=== PATIENT | female | born 1935 | race Caucasian/White ===

== ENCOUNTER 2018-09-03 12:49 | Emergency (ER) | payer MEDICARE, OTHER ==
--- NOTE | 2018-09-03 12:56 | EDM.PDOC ---
"ED HPI GENERAL MEDICAL PROBLEM - General Chief Complaint: Abdominal Pain Stated Complaint: ADOMINAL PAIN Time Seen by Provider: 09/03/18 12:55 Source of Information: Reports: Patient, Family (), Old Records, RN, RN Notes Reviewed History Limitations: Reports: No Limitations - History of Present Illness INITIAL COMMENTS - FREE TEXT/NARRATIVE: Pt presents to ER from home by POV with c/o the onset of epigastric/RUQ pain on Saturday, Aug.31 and has been persistent since that time. She reports the pain is associated with nausea and loss of appetite. The pain radiates to the Rt upper back. Today the pain became severe. She denies vomiting, fever, chills, abdominal distention, or urinary symptoms. She reports no change in her chronic constipation. The pain is worse if she tries to eat or moves/bends at the abdomen. Nothing has alleviated her pain. Onset Date: 08/31/18 Duration: Constant, Getting Worse Location: Reports: Abdomen Quality: Reports: Ache Severity: Moderate Improves with: Reports: None Worsens with: Reports: Eating, Movement Associated Symptoms: Reports: No Other Symptoms - Related Data Allergies Allergy/AdvReac Type Severity Reaction Status Date / Time No Known Allergies Allergy Verified 03/12/16 11:49 Home Meds: Home Meds Aspirin/Calcium Carbonate/Mag [Aspirin Buffered 325 mg Tab] 1 tab PO DAILY 03/12 [History] Metoprolol Tartrate 50 mg PO BID 03/12/16 [History] Levothyroxine [Synthroid] 50 mcg PO DAILY 09/03/18 [History] Lisinopril 40 mg PO DAILY 09/03/18 [History] hydroCHLOROthiazide [Hydrochlorothiazide] 25 mg PO DAILY 09/03/18 [History] Past Medical History HEENT History: Reports: Cataract, Impaired Vision, Macular Degeneration Cardiovascular History: Reports: Heart Murmur, High Cholesterol, Hypertension Respiratory History: Reports: COPD Genitourinary History: Reports: Acute Renal Failure Endocrine/Metabolic History: Reports: Other (See Below) Other Endocrine/Metabolic History: hashimotos thyroiditis - Infectious Disease History Infectious Disease History: Reports: Measles, Mumps Social & Family History - Family History Oncologic: Reports: Prostate, Other (See Below) Other Oncologic Family History: unsure of - Tobacco Use Smoking Status *Q: Current Every Day Smoker Tobacco Use Within Last Twelve Months: Cigarettes Years of Tobacco use: 65 Packs/Tins Daily: 0.5 Smoking Cessation Information Provided To Patient: Patient Refused Second Hand Smoke Education Provided: Yes - Caffeine Use Caffeine Use: Reports: Coffee - Alcohol Use Alcohol Use History: Yes Alcohol Use Frequency: Socially - Recreational Drug Use Recreational Drug Use: No - Living Situation & Occupation Living situation: Reports: , with Spouse Occupation: Retired ED ROS GENERAL - Review of Systems Review Of Systems: ROS reveals no pertinent complaints other than HPI. ED EXAM, GI/ABD - Physical Exam Exam: See Below Exam Limited By: No Limitations General Appearance: Alert, No Apparent Distress, Thin, Other (Frail, elderly female, uncomfortable but non-toxic appearing) Eyes: Bilateral: Normal Appearance Ears: Hearing Grossly Normal Nose: Normal Inspection Throat/Mouth: Normal Lips, Normal Voice, No Airway Compromise Head: Atraumatic, Normocephalic Neck: Normal Inspection, Full Range of Motion Respiratory/Chest: No Respiratory Distress, No Accessory Muscle Use, Chest Non- Tender, Decreased Breath Sounds. No: Rales, Rhonchi, Wheezing Cardiovascular: Regular Rate, Rhythm, No Edema, Bradycardia GI/Abdominal Exam: Normal Bowel Sounds, Soft, No Distention, Tender (Acutely tender at RUQ). No: Guarding, Rigid, Rebound (Female) Exam: Deferred Rectal (Female) Exam: Deferred Back Exam: Normal Inspection. No: CVA Tenderness (L), CVA Tenderness (R) Extremities: Normal Inspection, No Pedal Edema Neurological: Alert, Oriented, Normal Cognition, No Motor/Sensory Deficits Psychiatric: Normal Mood Skin Exam: Warm, Dry, Intact, Normal Color, No Rash Course - Vital Signs Last Recorded V/S: Last Vital Signs Temp 36.8 C 09/03/18 15:37 Pulse 56 L 09/03/18 16:01 Resp 16 09/03/18 16:01 BP 108/54 L 09/03/18 16:01 Pulse Ox 96 09/03/18 15:37 - Orders/Labs/Meds Orders: Active Orders 24 hr Category Date Time Status Peripheral IV Care [RC] . DIRECTED Care 09/03/18 13:38 Active Abdomen Ltd [US] Urgent Exams 09/03/18 14:20 Taken UA RFX A[place]LA[place] AND CULT IF INDIC [URIN] Stat Lab 09/03/18 13:38 Ordered Sodium Chloride 0.9% [Normal Saline] 1,000 ml Med 09/03/18 15:30 Active IV ASDIRECTED Sodium Chloride 0.9% [Saline Flush] Med 09/03/18 13:37 Active 10 ml FLUSH ASDIRECTED PRN Peripheral IV Insertion Adult [OM.PC] Stat Oth 09/03/18 13:37 Ordered Medication Orders Sodium Chloride (Normal Saline) 1,000 mls @ 150 mls/hr IV ASDIRECTED JOHNATHAN Last Admin: 09/03/18 15:32 Dose: 150 mls/hr Sodium Chloride (Saline Flush) 10 ml FLUSH ASDIRECTED PRN PRN Reason: Keep Vein Open Last Admin: 09/03/18 13:53 Dose: 10 ml Labs: Laboratory Tests 09/03/18 09/03/18 Range/Units 13:44 13:44 WBC 5.4 (5.0-10.0) 10^3/uL RBC 4.43 (4.2-5.4) 10^6/uL Hgb 13.6 (12.0-16.0) g/dL Hct 41.7 (37.0-47.0) % MCV 94.1 (80-100) fL MCH 30.7 (27.0-34.0) pg MCHC 32.6 L (33.0-35.0) g/dL Plt Count 215 (150-450) 10^3/uL Neut % (Auto) 73.4 (42.2-75.2) % Lymph % (Auto) 13.0 L (20.5-50.1) % [place] % (Auto) 11.2 H (2-8) % Eos % (Auto) 2.2 (1.0-3.0) % Baso % (Auto) 0.2 (0.0-1.0) % Sodium 137 (135-145) mmol/L Potassium 4.4 (3.6-5.0) mmol/L Chloride 99 L D (101-111) mmol/L Carbon Dioxide 26.0 (21.0-31.0) mmol/L Anion Gap 16.4 BUN 50 H (7-18) mg/dL Creatinine 2.4 H (0.6-1.3) mg/dL Est Cr Clr Drug Dosing 11.24 mL/min Estimated GFR (MDRD) 19 BUN/Creatinine Ratio 20.83 Glucose 133 H (74-105) mg/dL Calcium 9.4 (8.4-10.2) mg/dl Total Bilirubin 1.2 H (0.2-1.0) mg/dL AST 18 (10-42) IU/L ALT 7 L (10-60) IU/L Alkaline Phosphatase 83 (42-121) IU/L Total Protein 7.6 (6.7-8.2) g/dl Albumin 4.1 (3.2-5.5) g/dl Globulin 3.5 Albumin/Globulin Ratio 1.17 Amylase 96 (28-100) U/L Lipase 49 (22-51) U/L Meds: Medications Generic Name Dose Route Start Last Admin Trade Name Freq PRN Reason Stop Dose Admin Sodium Chloride 1,000 mls @ 150 mls/hr 09/03/18 15:30 09/03/18 15:32 Normal Saline IV 150 mls/hr ASDIRECTED JOHNATHAN Administration Sodium Chloride 10 ml 09/03/18 13:37 09/03/18 13:53 Saline Flush FLUSH 10 ml ASDIRECTED PRN Administration Keep Vein Open Discontinued Medications Generic Name Dose Route Start Last Admin Trade Name Freq PRN Reason Stop Dose Admin Hydromorphone HCl 0.5 mg 09/03/18 15:18 09/03/18 15:33 Dilaudid IVPUSH 09/03/18 15:19 0.5 mg ONETIME ONE Administration Ondansetron HCl 4 mg 09/03/18 15:18 09/03/18 15:33 Zofran IV 09/03/18 15:19 4 mg ONETIME ONE Administration - Radiology Interpretation Free Text/Narrative:: [facility] Final Radiology Report Call: [phone] assistance Online chat: [email or web address] Name: CONNER BEATTY Age: 83Years F Date: 09/03/2018 SSN: -- : [id number] Study: US ABDOMEN LTD Requesting Physician: DONALD RODRIGUEZ Images: 29 Addl Studies: Provided Clinical History: Contrast: Without Contrast Medium: Contrast Amount: Contrast Method: Page 1 of 2 EXAM: US Abdomen Limited, Right Upper Quadrant EXAM DATE/TIME: 09/03/2018 2:34 PM CLINICAL HISTORY: 83 years old, female; Pain; Abdominal pain; Epigastric TECHNIQUE: Real-time ultrasound of the abdomen with image documentation. Examination was focused on the right upper quadrant. COMPARISON: No relevant prior studies available. FINDINGS: Liver: Normal. No masses. Gallbladder: Shadowing gallstones are noted within the gallbladder. There is no evidence of gallbladder wall thickening or pericholecystic fluid. Common bile duct: The proximal extrahepatic common duct measures up to 12 mm in diameter. The mid and distal portions of the common duct are not visualized due to overlying bowel gas. Pancreas: The visualized portions of the pancreatic neck and body are grossly normal in appearance. The remainder the pancreas is not well-visualized due to overlying bowel gas. Right kidney: The right kidney measures 7.7 cm in length and contains a cyst measuring 3.3 x 2.9 x 3.4 cm. No right-sided hydronephrosis or renal calculus is identified. IMPRESSION: 1. Mildly dilated proximal extrahepatic common bile duct, measuring up to 12 mm in diameter. Recommend correlation with the patient's laboratory studies. 2. Gallstones without evidence of associated inflammation. [facility] | Final Radiology Report CONFIDENTIALITY STATEMENT This report is intended only for use by the referring physician, and only in accordance with law. If you received this in error, call [phone]. Page 2 of 2 Thank you for allowing us to participate in the care of your patient. Dictated and Authenticated by: Pasquale Hutchins MD 09/03/2018 3:27 PM Central Time ([place] & [place]) - Re-Assessments/Exams Free Text/Narrative Re-Assessment/Exam: 09/03/18 15:38 Onset of RUQ/epigastric pain on 08/31/18 with nausea and loss of appetite. Today the pain worsened. I think with the CBD dilated to 12mm she is likely to had a ductal stone or has passed one recently. LFT's are not elevated, but I still feel she needs evaluated by surg. or GI due to the persistence and severity of her pain. I consulted Dr. Saldana (Gen. Surgeon) via [employer] [facility], he advises to transfer the pt to the hospitalist service and he will consult. Departure - Departure Time of Disposition: 16:04 Disposition: DC/Tfer to Acute Hospital 02 Condition: Undetermined Clinical Impression: Cholelithiasis with choledocholithiasis - Discharge Information *PRESCRIPTION DRUG MONITORING PROGRAM REVIEWED*: Not Applicable *COPY OF PRESCRIPTION DRUG MONITORING REPORT IN PATIENT TERRIE: Not Applicable Forms: ED Department Discharge, Interfacility Transfer EMTALA - My Orders Last 24 Hours: My Active Orders 09/03/18 13:37 Sodium Chloride 0.9% [Saline Flush] 10 ml FLUSH ASDIRECTED PRN Peripheral IV Insertion Adult [OM.PC] Stat 09/03/18 13:38 Peripheral IV Care [RC] . DIRECTED UA RFX A[place]LA[place] AND CULT IF INDIC [URIN] Stat 09/03/18 14:20 Abdomen Ltd [US] Urgent 09/03/18 15:30 Sodium Chloride 0.9% [Normal Saline] 1,000 ml IV ASDIRECTED - Assessment/Plan Last 24 Hours: My Active Orders 09/03/18 13:37 Sodium Chloride 0.9% [Saline Flush] 10 ml FLUSH ASDIRECTED PRN Peripheral IV Insertion Adult [OM.PC] Stat 09/03/18 13:38 Peripheral IV Care [RC] . DIRECTED UA RFX [place] AND CULT IF INDIC [URIN] Stat 09/03/18 14:20 Abdomen Ltd [US] Urgent 09/03/18 15:30 Sodium Chloride 0.9% [Normal Saline] 1,000 ml IV ASDIRECTED"
[2018-09-03] MEDS ORDERED: Sodium Chloride 0.9% 10 ML Syringe FLUSH PRN (13:37)
[2018-09-03 14:11] LABS: ANION GAP 16.4
[2018-09-03] MEDS ORDERED: HYDROmorphone 1 MG/ML Syringe IVPUSH ONE (15:18)
[2018-09-03] MEDS ORDERED: Ondansetron 4 MG/2 ML SDV IV ONE (15:18)
[2018-09-03] MEDS ORDERED: Sodium Chloride 0.9% 1,000 ML IV SCH (15:30)
[2018-09-03 16:02] VITALS: BP 108/54
== END 2018-09-03 17:05 ==
LOC: DL.ED 12:49
DX: K80.70 Calculus of gallbladder and bile duct without cholecystitis without obstruction (principal); F17.210 Nicotine dependence, cigarettes, uncomplicated; I10 Essential (primary) hypertension; Z79.82 Long term (current) use of aspirin
CPT/HCPCS: 36415; 76705; 80053; 81001; 82150; 83690; 85025; 87086; 96361; 96374; 96375; 99285; J1170; J2405; J7030